=== PATIENT | female | born 1985 | race Caucasian/White ===

== ENCOUNTER 2020-08-09 00:27 | Outpatient (CLI) | payer BC, MEDICAID, SELFPAY ==
[2020-08-09 17:26] LABS: SARS-CoV-2 RNA PCR Negative
== END 2020-08-09 00:28 | disposition home or self-care (01) ==
LOC: ANHCOVIDDT 00:27
PROVIDERS: Visit Provider Otolaryngology
DX: Z01.812 Encounter for preprocedural laboratory examination (principal); Z20.828 Contact with and (suspected) exposure to other viral communicable diseases
CPT/HCPCS: 87635; C9803; U0003

== ENCOUNTER 2020-08-11 02:06 | Day surgery (SDC) | payer BC, MEDICAID, SELFPAY ==
[2020-08-04 09:45] VITALS: BMI 37.9
--- NOTE | 2020-08-09 07:03 | PM.HPGS ---
History of Present Illness History of Present Illness Consent: Risks, benefits, and alternatives have been discussed and questions answered. Patient agrees to proceed with procedure. Chief complaint: chronic otitis media Narrative: Sarah Beth Rojo is a 34 year old female multiple episodes of the serous otitis has had tubes multiple times in the past admitted for bilateral elective myringotomy and tubes Review of Systems Review of Systems: All systems reviewed & are unremarkable except as noted in HPI and below PMFSH Social History Social History Smoking status: Never smoker Alcohol intake: current Drinks per week: 1 Substance use: never Spiritual care concerns: No Meds Home Medications and Allergies Home Medications Medication Instructions Recorded Confirmed Type amitriptyline 25 mg tablet 25 mg PO HS 06/29/20 08/04/20 History topiramate 25 mg tablet 25 mg PO BID 06/29/20 08/04/20 History Allergies Allergy/AdvReac Type Severity Reaction Status Date / Time No Known Allergies Allergy Verified 08/04/20 09:45 Assessment and Plan Additional Plan Bilateral myringotomy and insertion of tubes
--- NOTE | 2020-08-10 11:13 | WPDHPUPDATE1 ---
History and Physical Update Update Date/Time: 08/10/20 11:13 History and Physical has been reviewed, including an updated exam of the patient. There are NO changes in the patient's condition. Risks, benefits, and alternatives have been discussed and questions answered. Patient agrees to proceed with procedure.
[2020-08-11] VITALS (8 sets, daily range): BP systolic 113–142; BP diastolic 69–85; PULSE 65–86; RESP 12–18; TEMP 36.1–36.7; O2SAT 93–99
--- NOTE | 2020-08-11 08:53 | WPDANESEPPF ---
Anes - Initial Pre Proc Eval Procedure: Operation Date: 08/11/20 08:30 Proposed Procedures p Bilateral Myringotomy,Insertion Of Tubes - Mohit Buitrago MD Date/Time: 08/11/20 08:53 Surgeon: Mohit Buitrago MD Pre Op Diagnosis: chronic otitis media Patient Data Age: 34 Gender: F Height: 5 ft 6 in Weight: 106.59 kg Allergies Allergy/AdvReac Type Severity Reaction Status Date / Time No Known Allergies Allergy Verified 08/04/20 09:45 Home Medications Medication Instructions Recorded Confirmed Type amitriptyline 25 mg tablet 25 mg PO HS 06/29/20 08/04/20 History topiramate 25 mg tablet 25 mg PO BID 06/29/20 08/04/20 History Patient hx anesthesia problems: post op nausea/vomiting Family hx anesthesia problems: none PMFSH Past Medical History Medical History Depression Hx of migraines Social History Social History Smoking status: Never smoker Alcohol intake: current Drinks per week: 1 Substance use: never Spiritual care concerns: No Anes - Eval Final PreProcedure Day of Procedure 08/11/20 08:53 Patient weight: obese Heart: regular rate and rhythm Lungs: clear to auscultation Airway: Mallampati scale class II Neurological: alert and oriented Last oral intake: >/= 8 hours ASA classification: II Emergent: no Anesthetic plan: proceed Anesthesia type and monitoring: general GIVS and standard monitoring Informed Consent: The patient's anesthetic plan and its attendant risks and benefits were discussed with the patient/family/POA. Questions were solicited and answers provided to the satisfaction of the patient/family/POA.
[2020-08-11] MEDS: LACTATED RINGERS 1,000 ML 30 ML IV CONT (09:00)
[2020-08-11] MEDS: SCOPOLAMINE 1.5 MG PATCH TRANSDERM (09:00)
[2020-08-11] MEDS: ACETAMINOPHEN 500 MG TABLET 1000 MG PO (09:29)
--- NOTE | 2020-08-11 09:32 | PM.PROC ---
Procedure Note - Detailed Date of procedure: 08/11/20 Pre-op diagnosis: chronic otitis media chronic serous otitis Post-op diagnosis: same Procedure performed: MYRINGOTOMY TUBE SURGERY POSTOPERATIVE DISCHARGE INSTRUCTIONS DR. SAN[facility] 1. ACTIVITY Your child has received anesthesia for this procedure. He/she may feel somewhat dizzy and or sleepy after the surgery. Anesthesia agents can remain in one?s body for up to 24 hours. It is important for your child to rest for the remainder of the day and be under adult supervision. Your child should not ride his/her bike or perform activities that require coordination. Children are usually very grumpy and fussy for several hours following general anesthesia. 2. EAR DRAINAGE A small amount of drainage from the ear canal is normal following this surgery. This drainage or bleeding may continue for the next 3-7 days. The prescribed ear drops will treat this drainage. The drainage may contain a small amount of blood. A cotton ball may be placed in the ear canal opening. Drainage is often an indication that the tubes are ?doing their job?. Ear drainage after the first week of surgery is abnormal (but not an emergency). Please call Dr. Sanches?s office if drainage is persistent. 3. PAIN A slight earache is not unusual. This is usually relieved by giving your child Tylenol. Severe pain should be reported to Dr. Sanches. 4. POSTOPERATIVE CARE Try to avoid water from entering into the ear for up to 10 days. This can be accomplished by either having your child wear a shower cap or placing a small amount of Vaseline on a cotton ball and placing it in your child?s ear canal opening. Please avoid swimming until instructed to do so by Dr. Sanches. Encourage your child to sneeze with his/her mouth open. When blowing their nose, please do so gently. 5. DIET Your child may resume their usual diet upon discharge. Nausea is very unlikely with the type of anesthesia that they have received. 6. FOLLOW UP APPOINTMENT Please call Dr. Sanches?s office and schedule a follow up appointment in 1 week. 07/08 Description of procedure: MYRINGOTOMY TUBE SURGERY POSTOPERATIVE DISCHARGE INSTRUCTIONS DR[facility] 1. ACTIVITY Your child has received anesthesia for this procedure. He/she may feel somewhat dizzy and or sleepy after the surgery. Anesthesia agents can remain in one?s body for up to 24 hours. It is important for your child to rest for the remainder of the day and be under adult supervision. Your child should not ride his/her bike or perform activities that require coordination. Children are usually very grumpy and fussy for several hours following general anesthesia. 2. EAR DRAINAGE A small amount of drainage from the ear canal is normal following this surgery. This drainage or bleeding may continue for the next 3-7 days. The prescribed ear drops will treat this drainage. The drainage may contain a small amount of blood. A cotton ball may be placed in the ear canal opening. Drainage is often an indication that the tubes are ?doing their job?. Ear drainage after the first week of surgery is abnormal (but not an emergency). Please call Dr. Sanches?s office if drainage is persistent. 3. PAIN A slight earache is not unusual. This is usually relieved by giving your child Tylenol. Severe pain should be reported to Dr. Sanches. 4. POSTOPERATIVE CARE Try to avoid water from entering into the ear for up to 10 days. This can be accomplished by either having your child wear a shower cap or placing a small amount of Vaseline on a cotton ball and placing it in your child?s ear canal opening. Please avoid swimming until instructed
[2020-08-11] MEDS: fentaNYL CITRATE INJ (*CRX) 100 MCG/2 ML VIAL 25 MCG IV PUSH ×4 (09:50→09:56)
--- NOTE | 2020-08-15 13:29 | P.OP_ITS ---
Procedure Note - Detailed Date of procedure: 08/15/20 Pre-op diagnosis: chronic otitis media Chronic otitis media Post-op diagnosis: same Procedure performed: bilateral myringotomy and tubes Description of procedure: MYRINGOTOMY TUBE SURGERY POSTOPERATIVE DISCHARGE INSTRUCTIONS [facility] 1. ACTIVITY Your child has received anesthesia for this procedure. He/she may feel somewhat dizzy and or sleepy after the surgery. Anesthesia agents can remain in one?s body for up to 24 hours. It is important for your child to rest for the remainder of the day and be under adult supervision. Your child should not ride his/her bike or perform activities that require coordination. Children are usually very grumpy and fussy for several hours following general anesthesia. 2. EAR DRAINAGE A small amount of drainage from the ear canal is normal following this surgery. This drainage or bleeding may continue for the next 3-7 days. The prescribed ear drops will treat this drainage. The drainage may contain a small amount of blood. A cotton ball may be placed in the ear canal opening. Drainage is often an indication that the tubes are ?doing their job?. Ear drainage after the first week of surgery is abnormal (but not an emergency). Please call Dr. Sanches?s office if drainage is persistent. 3. PAIN A slight earache is not unusual. This is usually relieved by giving your child Tylenol. Severe pain should be reported to Dr. Sanches. 4. POSTOPERATIVE CARE Try to avoid water from entering into the ear for up to 10 days. This can be accomplished by either having your child wear a shower cap or placing a small amount of Vaseline on a cotton ball and placing it in your child?s ear canal opening. Please avoid swimming until instructed to do so by Dr. Sanches. Encourage your child to sneeze with his/her mouth open. When blowing their nose, please do so gently. 5. DIET Your child may resume their usual diet upon discharge. Nausea is very unlikely with the type of anesthesia that they have received. 6. FOLLOW UP APPOINTMENT Please call Dr. Sanches?s office and schedule a follow up appointment in 1 week. 07/08 Surgeon: Mohit Sanches MD Estimated blood loss (mL): 0 Drains: No Packing: No Pathology: none sent Complications: No immediate complications Condition: stable Disposition: PACU Findings: serous otitis media
== END 2020-08-11 11:20 | disposition home or self-care (01) ==
PROVIDERS: PCP Family Medicine; Visit Provider Otolaryngology
DX: H65.23 Chronic serous otitis media, bilateral (principal)
CPT/HCPCS: 69436; A9270; J2704; J3010; J7120